=== PATIENT | female | born 1945 | race Caucasian/White ===

== ENCOUNTER 2025-01-22 13:54 | Outpatient (CLI) | payer MEDICARE | END 2025-01-22 13:55 | disposition home or self-care (01) | LOC: CSHULT 13:54 | PROVIDERS: ATTEND Internal Medicine Endocrinology, Diabetes & Metabolism | DX: R60.0 Localized edema (principal); M79.662 Pain in left lower leg; S80.822A Blister (nonthermal), left lower leg, initial encounter | CPT/HCPCS: 93970 ==